=== PATIENT | male | born 1980 | race Caucasian/White ===

== ENCOUNTER 2016-12-20 08:22 | Emergency (ER) | payer SELFPAY ==
[2016-12-20] MEDS ORDERED: ONDANSETRON 4 MG ODT BU ONE (08:58)
[2016-12-20] MEDS ORDERED: ONDANSETRON 4 MG ODT ONE (08:59)
[2016-12-20 09:14] LABS: HEMATOCRIT 43 % (39-53); MEAN CORPUSCULAR HGB CONC 35.9 gm/dl (32.0-36.0); MEAN CORPUSCULAR VOLUME 87 fL (80-100)
[2016-12-20 09:28] VITALS: BP 119/65; PULSE 84; RESP 18; TEMP 97.4; O2SAT 98
[2016-12-20 09:32] LABS: ALBUMIN 4.4 gm/dl (3.4-5.0); CALCIUM 8.8 mg/dl (8.5-10.1); POTASSIUM 4.3 mMol/L (3.5-5.1)
[2016-12-20 09:38] LABS: BASOPHILS % (MANUAL) 0 % (0-3); EOSINOPHILS % (MANUAL) 0 % (0-9); LYMPHOCYTES % (MANUAL) 2 % (10-50)
[2016-12-20 09:39] LABS: NORMAL RBCS PRESENT
[2016-12-20 09:43] LABS: HEMOGLOBIN A1C 8.5 % (4.8-6.0)
[2016-12-20] MEDS ORDERED: PROCHLORPERAZINE EDISYLATE 5 MG/ML SOL IV ONE (09:51)
[2016-12-20] MEDS ORDERED: SODIUM CHLORIDE 0.9% 1000ML 1,000 ML IV ONE (09:51)
[2016-12-20] MEDS ORDERED: INSULIN HUMAN REGULAR 100 U/ML SOL SC ONE (09:57)
[2016-12-20] MEDS ORDERED: PROCHLORPERAZINE EDISYLATE 5 MG/ML SOL ONE (10:02)
[2016-12-20] MEDS ORDERED: INSULIN HUMAN REGULAR 100 U/ML SOL ONE (10:03)
== END 2016-12-20 10:50 | disposition home or self-care (01) | DRG 392 ==
LOC: ED 08:22
DX: K29.00 Acute gastritis without bleeding (principal); E11.65 Type 2 diabetes mellitus with hyperglycemia
CPT/HCPCS: 36415; 80053; 82962; 83036; 85007; 85027; 96365; 96372; 96374; 99284; J0780; J1815

== ENCOUNTER 2018-02-24 15:14 | Emergency (ER) | payer SELFPAY ==
[2018-02-24 15:44] VITALS: BP 130/84; PULSE 85; RESP 20; TEMP 98.3; O2SAT 96
[2018-02-24 16:43] LABS: ALBUMIN 4.4 gm/dl (3.4-5.0); BASOPHILS % (AUTO) 1 % (0-3); BILIRUBIN,TOTAL 1.9 mg/dl (0.2-1.0); CALCIUM 9.1 mg/dl (8.5-10.1); CARBON DIOXIDE 29.4 mEq/L (21-32); CREATININE 1.31 mg/dl (0.80-1.30); EOSINOPHILS % (AUTO) 0 % (0-9); HEMATOCRIT 45 % (39-53); HEMOGLOBIN 15.2 gm/dl (13.5-17.7); LYMPHOCYTES % (AUTO) 7.489 % (10-50); MEAN CORPUSCULAR HEMOGLOBIN 30.3 pg (27.0-32.0); MEAN CORPUSCULAR HGB CONC 33.9 gm/dl (32.0-36.0); MEAN CORPUSCULAR VOLUME 89 fL (80-100); MONOCYTES % (AUTO) 4.4 % (0-12); NEUTROPHILS % (AUTO) 87.5 % (37-80); POTASSIUM 4.1 mMol/L (3.5-5.1); TOTAL PROTEIN 6.9 gm/dl (6.4-8.2)
== END 2018-02-24 17:44 | disposition home or self-care (01) | DRG 392 ==
LOC: ED 15:14
DX: K52.9 Noninfective gastroenteritis and colitis, unspecified (principal)
CPT/HCPCS: 36415; 80053; 82962; 85025; 89055; 99282; 99283